=== PATIENT | male | born 1960 | race Caucasian/White ===

== ENCOUNTER 2017-02-09 21:44 | Inpatient (IN) | payer MEDICAID ==
[~2017-02-09] VITALS: Ht 182.9 cm; Wt 94.4 kg
[2017-02-09 22:24] LABS: BASOPHIL % 0.3 % (0-2); PLATELET COUNT 258 x10^3mcL (130-400); RED CELL DISTRIBUTION WIDTH 13.7 % (11.5-14.5)
[2017-02-09 22:34] LABS: CALCIUM 8.9 mg/dL (8.5-10.1); CHLORIDE SERUM 105 mmol/L (98-107); GFR1 > 60 mL/min; GLUCOSE SERUM 174 mg/dL (74-106); POTASSIUM SERUM 3.9 mmol/L (3.5-5.1); SODIUM SERUM 142 mmol/L (136-145)
[2017-02-09 22:38] LABS: ALBUMIN 4.4 g/dL (3.4-5.0); ALKALINE PHOSPHATASE 105 U/L (46-116); ALT/SGPT 38 U/L (16-63); AST/SGOT 21 U/L (15-37); BILIRUBIN TOTAL 1.21 mg/dL (0.20-1.00)
[2017-02-09 22:39] LABS: TOTAL PROTEIN, SERUM 8.3 g/dL (6.4-8.2)
[2017-02-09 23:03] LABS: CK-MB 0.8 ng/mL (0-3.6)
[2017-02-09] MEDS ORDERED: NOR5 PO (23:16)
[2017-02-10 00:19] VITALS: BP 126/78
[2017-02-10 00:43] LABS: MAGNESIUM 2.2 mg/dL (1.8-2.4)
[2017-02-10 00:44] LABS: CHOLESTEROL/HDL RATIO 5.2
[2017-02-10 01:15] LABS: FREE T4 1.06 ng/dL (0.76-1.46); FREE THYROXINE INDEX 2.5 ug/dL (1.4-4.5); T4(THYROXINE) 7.6 ug/dL (4.7-13.3)
[2017-02-10 02:55] LABS: T3 TOTAL 1.27 ng/mL
[2017-02-10 05:01] LABS: microscopic required? NO
[2017-02-10 05:12] VITALS: BP 115/69
[2017-02-10 05:18] LABS: UA SPECIFIC GRAVITY 1.015 (1.005-1.035); urine erythrocyte NEGATIVE (NEGATIVE)
[2017-02-10 06:20] LABS: AMPHETAMINE QUAL UR NONE DETECTED (NEG <=1000)
[2017-02-10 07:04] LABS: BASOPHIL % 0.4 % (0-2); PLATELET COUNT 235 x10^3mcL (130-400); RED CELL DISTRIBUTION WIDTH 13.8 % (11.5-14.5)
[2017-02-10 07:18] LABS: CALCIUM 8.3 mg/dL (8.5-10.1); CARBON DIOXIDE 28.3 mmol/L (21-32); CHLORIDE SERUM 108 mmol/L (98-107); CREATININE SERUM 0.8 mg/dL (0.7-1.3); GFR1 > 60 mL/min; GLUCOSE SERUM 119 mg/dL (74-106); MAGNESIUM 2.1 mg/dL (1.8-2.4); PHOSPHOROUS 4.2 mg/dL (2.5-4.9); POTASSIUM SERUM 3.8 mmol/L (3.5-5.1); SODIUM SERUM 143 mmol/L (136-145)
[2017-02-10 10:28] VITALS: BP 114/58
[2017-02-10 13:59] VITALS: BP 123/67
[2017-02-10 18:58] VITALS: BP 127/77
[2017-02-10 21:33] VITALS: BP 128/73
[2017-02-11 05:11] VITALS: BP 123/74
[2017-02-11] MEDS ORDERED: CARCD120 PO (05:31)
[2017-02-11] MEDS ORDERED: ECO81 PO (05:31)
[2017-02-11 06:18] LABS: BASOPHIL % 0.4 % (0-2); PLATELET COUNT 212 x10^3mcL (130-400); RED CELL DISTRIBUTION WIDTH 13.9 % (11.5-14.5)
[2017-02-11 06:30] LABS: CALCIUM 7.9 mg/dL (8.5-10.1); CARBON DIOXIDE 27.3 mmol/L (21-32); CHLORIDE SERUM 108 mmol/L (98-107); CREATININE SERUM 0.9 mg/dL (0.7-1.3); GFR1 > 60 mL/min; GLUCOSE SERUM 115 mg/dL (74-106); MAGNESIUM 1.9 mg/dL (1.8-2.4); PHOSPHOROUS 3.6 mg/dL (2.5-4.9); POTASSIUM SERUM 3.8 mmol/L (3.5-5.1); SODIUM SERUM 142 mmol/L (136-145)
[2017-02-11 09:12] VITALS: BP 128/74
[2017-02-11 09:53] VITALS: BP 121/67; BP 128/74
== END 2017-02-11 13:08 | disposition home or self-care (01) | DRG 201 ==
LOC: ED 21:44 → DU 23:07
PROVIDERS: Emergency Medicine; Family Medicine; ADMIT Family Medicine
DX: I48.91 Unspecified atrial fibrillation (principal); I10 Essential (primary) hypertension; E78.2 Mixed hyperlipidemia; K29.70 Gastritis, unspecified, without bleeding; I83.12 Varicose veins of left lower extremity with inflammation; I83.11 Varicose veins of right lower extremity with inflammation; K42.9 Umbilical hernia without obstruction or gangrene; K40.20 Bilateral inguinal hernia, without obstruction or gangrene, not specified as recurrent; Z68.28 Body mass index [BMI] 28.0-28.9, adult
CPT/HCPCS: 80307; 83880; 84439; G0480; J3490; J7030; Q0092

== ENCOUNTER 2017-12-17 08:59 | Inpatient (IN) | payer MEDICAID ==
[~2017-12-17] VITALS: Ht 177.8 cm; Wt 89.5 kg
[~2017-12-17 08:59] MED LIST: CARCD120 PO; ECO81 PO; NOR5 PO
[2017-12-17 09:06] VITALS: Ht 177.8 cm; Wt 89.5 kg
[2017-12-17 10:10] LABS: CALCIUM 8.5 mg/dL (8.5-10.1); CARBON DIOXIDE 27.7 mmol/L (21-32); CHLORIDE SERUM 105 mmol/L (98-107); GFR1 > 60 mL/min; GLUCOSE SERUM 118 mg/dL (74-106); POTASSIUM SERUM 3.7 mmol/L (3.5-5.1); SODIUM SERUM 141 mmol/L (136-145)
[2017-12-17 10:13] LABS: BASOPHIL % 0.5 % (0-2); PLATELET COUNT 224 x10^3mcL (130-400); RED CELL DISTRIBUTION WIDTH 13.6 % (11.5-14.5)
[2017-12-17 10:14] LABS: ALKALINE PHOSPHATASE 86 U/L (46-116); ALT/SGPT 34 U/L (16-63); AST/SGOT 20 U/L (15-37); BILIRUBIN TOTAL 1.1 mg/dL (0.20-1.00); TOTAL PROTEIN, SERUM 7.5 g/dL (6.4-8.2)
[2017-12-17] MEDS ORDERED: CARDIZEM CD240 MG PO (11:07)
[2017-12-17 11:13] LABS: MAGNESIUM 2.1 mg/dL (1.8-2.4); PHOSPHOROUS 2.9 mg/dL (2.5-4.9)
[2017-12-17 11:16] LABS: T3 TOTAL 1.08 ng/mL
[2017-12-17 11:18] LABS: FREE T4 1.02 ng/dL (0.76-1.46); FREE THYROXINE INDEX 2.9 ug/dL (1.4-4.5); T4(THYROXINE) 8.4 ug/dL (4.7-13.3)
[2017-12-17 11:24] LABS: CHOLESTEROL/HDL RATIO 5.1
[2017-12-17 11:39] VITALS: BP 163/86
[2017-12-17 12:30] LABS: microscopic required? NO
[2017-12-17 12:32] VITALS: BP 163/86
[2017-12-17 12:42] LABS: urine erythrocyte NEGATIVE (NEGATIVE)
[2017-12-17 12:52] LABS: AMPHETAMINE QUAL UR NONE DETECTED (NEG <=1000)
[2017-12-17 16:35] VITALS: BP 142/76
[2017-12-17 20:48] VITALS: BP 116/69
[2017-12-18 05:32] VITALS: BP 114/67
[2017-12-18 06:38] LABS: BASOPHIL % 0.4 % (0-2); PLATELET COUNT 203 x10^3mcL (130-400); RED CELL DISTRIBUTION WIDTH 13.2 % (11.5-14.5)
[2017-12-18 06:41] LABS: CARBON DIOXIDE 26.3 mmol/L (21-32); CHLORIDE SERUM 109 mmol/L (98-107); GFR1 > 60 mL/min; GLUCOSE SERUM 99 mg/dL (74-106); MAGNESIUM 2.2 mg/dL (1.8-2.4); POTASSIUM SERUM 3.8 mmol/L (3.5-5.1); SODIUM SERUM 143 mmol/L (136-145)
[2017-12-18 09:06] VITALS: BP 139/79
[2017-12-18 12:50] VITALS: BP 138/78
[2017-12-18 13:15] VITALS: BP 139/82
[2017-12-18] MEDS ORDERED: OMEPRAZOLE40 M1 PO (14:19)
[2017-12-18] MEDS ORDERED: FLE10 PO (14:20)
[2017-12-18] MEDS ORDERED: ASPIRIN ADULT L81 M5 PO (14:30)
[2017-12-18] MEDS ORDERED: LIPI20 PO (14:30)
[2017-12-18 14:54] VITALS: BP 139/82
[2017-12-18 16:44] VITALS: BP 142/72
[2017-12-21] MEDS ORDERED: LIPI20 PO (21:49)
== END 2017-12-18 18:45 | disposition home or self-care (01) | DRG 203 ==
LOC: ED 08:59 → DU 10:30
PROVIDERS: Emergency Medicine; Family Medicine
DX: M94.0 Chondrocostal junction syndrome [Tietze] (principal); E87.8 Other disorders of electrolyte and fluid balance, not elsewhere classified; I10 Essential (primary) hypertension; I48.91 Unspecified atrial fibrillation; Z53.29 Procedure and treatment not carried out because of patient's decision for other reasons; E83.51 Hypocalcemia; E78.5 Hyperlipidemia, unspecified; I87.8 Other specified disorders of veins; Z79.82 Long term (current) use of aspirin; Z68.28 Body mass index [BMI] 28.0-28.9, adult; Z88.1 Allergy status to other antibiotic agents; Z90.49 Acquired absence of other specified parts of digestive tract; Z90.89 Acquired absence of other organs; Z79.899 Other long term (current) drug therapy; Z56.0 Unemployment, unspecified; Z23 Encounter for immunization
CPT/HCPCS: 83880; 84439; 90658; J3010; J7030; Q0092